=== PATIENT | female | born 1955 | race Two or more races ===

== ENCOUNTER 2025-02-09 15:00 | Day surgery (SDC) | payer OTHER ==
[2025-02-09] MEDS ORDERED: DIPHENHYDRAMINE HCL 50 MG/ML VIAL 1ML IV ONE (16:45)
[2025-02-09] MEDS ORDERED: MIDAZOLAM HCL 2 MG/2 ML VIAL IV ONE (16:45)
[2025-02-09] MEDS ORDERED: fentaNYL CITRATE 50 MCG/ML AMPUL IV PUSH ONE (16:45)
== END 2025-02-09 17:45 | disposition home or self-care (01) ==
LOC: AMB-ENDOS 15:00
PROVIDERS: ATTEND Internal Medicine
DX: D12.0 Benign neoplasm of cecum (principal); D12.4 Benign neoplasm of descending colon; K63.5 Polyp of colon; Z86.0100 Personal history of colon polyps, unspecified; K57.30 Diverticulosis of large intestine without perforation or abscess without bleeding